=== PATIENT | female | born 1960 | race Two or more races ===

== ENCOUNTER 2023-04-26 15:28 | Emergency (ER) | payer OTHER ==
[~2023-04-26] VITALS: Ht 162.6 cm; Wt 63.0 kg
--- NOTE | 2023-04-26 15:45 | NUR ---
BIB [facility] 38,FOUND ON THE FLOOR BY FAMILY,"UNWITNESSED SEIZURE",HAD A SZ YESTERDAY PER REPORT, NOT ON ANY SZ MEDICATION,BLOOD SUGAR 124
--- NOTE | 2023-04-26 15:48 | NUR ---
IV LINE IS ESTABLISHED, BLOOD SPECIMEN COLLECTED AND SENT TO THE LAB
--- NOTE | 2023-04-26 16:59 | NUR ---
[facility] [phone] " CAREGIVER "
[2023-04-26] MEDS ORDERED: DIVA-78 PO ×2 (17:15→20:12)
--- NOTE | 2023-04-26 17:19 | NUR ---
CAREGIVER WILL PICK THE PATIENT UP IN 1 HOUR.
--- NOTE | 2023-04-26 18:50 | NUR ---
Patient discharged to home in stable condition. Written and verbal after care instructions given. Patient verbalizes understanding of instruction.
--- NOTE | 2023-04-26 18:50 | NUR ---
IV removed. Catheter intact and site benign. Pressure and 4x4 applied to site. No bleeding noted.
--- NOTE | 2023-04-26 18:55 | NUR ---
CAREGIVER AT BEDSIDE TO [facility] [employer] HELPER PATIENT
[2023-04-26 19:18] VITALS: BP 131/77
== END 2023-04-26 19:19 | disposition home or self-care (01) ==
LOC: EDBD 17:47 → ER 17:47
DX: R56.9 Unspecified convulsions (principal)
CPT/HCPCS: 82962-TC